=== PATIENT | female | born 1950 | race Hispanic/Latino ===

== ENCOUNTER 2021-05-12 09:46 | Day surgery (SDC) | payer MEDICARE, OTHER ==
[2021-05-12] VITALS (10 sets, daily range): BP systolic 98–148; BP diastolic 48–75
[~2021-05-12] VITALS: Ht 162.6 cm; Wt 68.9 kg
[2021-05-12] MEDS ORDERED: ESCI-8 PO (11:37)
[2021-05-12] MEDS ORDERED: CYAN50009 PO (11:37)
[2021-05-12] MEDS ORDERED: ICOS1CAP PO (11:37)
[2021-05-12] MEDS ORDERED: LEVO100C4 PO (11:37)
[2021-05-12] MEDS ORDERED: BACL20TA PO (11:45)
[2021-05-12] MEDS ORDERED: ATOR40TA71 PO (11:45)
[2021-05-12] MEDS ORDERED: CARV12.511 PO (11:45)
[2021-05-12] MEDS ORDERED: ASPI-1197 PO (11:45)
[2021-05-12] MEDS ORDERED: LISI20TA24 PO (11:45)
[2021-05-12] MEDS ORDERED: ERGO500093 PO (11:45)
[2021-05-12] MEDS ORDERED: EZET10TA48 PO (11:45)
[2021-05-12] MEDS ORDERED: ALLO300T2 PO (11:45)
[2021-05-12] MEDS ORDERED: BISA-107 PO (11:45)
[2021-05-12] MEDS ORDERED: FENTANYL CITRATE PF 50 MCG/1 ML 2ML VIAL ONE (12:37)
[2021-05-12] MEDS ORDERED: PROPOFOL 10 MG/ML 20ML VIAL IV ONE ×2 (12:37)
[2021-05-12] MEDS ORDERED: LIDOCAINE PF 100MG/5ML (2%) SYRINGE 5ML ONE (12:38)
[2021-05-12] MEDS ORDERED: EPHEDRINE SULFATE 50 MG/ML AMPULE ONE (13:05)
== END 2021-05-12 13:52 | disposition home or self-care (01) ==
LOC: ENDO 09:46 → DAH 09:46 → ENDO 13:52
PROVIDERS: ATTEND Internal Medicine
DX: C25.0 Malignant neoplasm of head of pancreas (principal); Z20.822 Contact with and (suspected) exposure to COVID-19; I11.0 Hypertensive heart disease with heart failure; I50.9 Heart failure, unspecified; K31.84 Gastroparesis; I25.10 Atherosclerotic heart disease of native coronary artery without angina pectoris; K21.9 Gastro-esophageal reflux disease without esophagitis; E11.9 Type 2 diabetes mellitus without complications; F41.9 Anxiety disorder, unspecified; F32.A Depression, unspecified; M19.90 Unspecified osteoarthritis, unspecified site; E78.00 Pure hypercholesterolemia, unspecified; E11.43 Type 2 diabetes mellitus with diabetic autonomic (poly)neuropathy; Z79.899 Other long term (current) drug therapy; Z90.49 Acquired absence of other specified parts of digestive tract; Z95.1 Presence of aortocoronary bypass graft; Z90.89 Acquired absence of other organs; Z90.13 Acquired absence of bilateral breasts and nipples; Z90.710 Acquired absence of both cervix and uterus; Z82.49 Family history of ischemic heart disease and other diseases of the circulatory system; Z83.3 Family history of diabetes mellitus; Z80.8 Family history of malignant neoplasm of other organs or systems
CPT/HCPCS: 43238; 82948; 87635; A4215 ×3; A4221; A4222; A4223; A4606; A4620; A4657; A4663; C9803; J2001; J2704; J3010; J3490